=== PATIENT | female | born 1970 | race African-American/Black ===

== ENCOUNTER 2022-01-11 14:12 | Emergency (ER) | payer MEDICARE, MEDICAID ==
[~2022-01-11] VITALS: Ht 170.2 cm; Wt 73.0 kg
[2022-01-11 14:59] LABS: HEMATOCRIT. 39.2 % (36.0-48.0); HEMOGLOBIN. 12.8 g/dL (12.0-16.0); MEAN CORPUSCULAR HEMOGLOBIN 29.4 pg (28.0-32.0); MEAN CORPUSCULAR VOLUME 89.8 fL (81.0-99.0); MEAN PLATELET VOLUME 8.9 fl (7.4-10.4); PLATELET 189 x1000/uL (130-400); RED BLOOD CELL COUNT 4.36 mill/uL (4.2-5.4); RED CELL DISTRIBUTION WIDTH 14.8 % (11.6-14.6)
[2022-01-11] MEDS ORDERED: LEVETIRACETAM 1000MG PREMIX 100 ML IV NR (15:15)
[2022-01-11] MEDS ORDERED: ACETAMINOPHEN 500MG TABLET PO NR (15:15)
[2022-01-11 15:24] LABS: CHLORIDE 105 mEq/L (98-107)
[2022-01-11 15:37] LABS: ETHANOL BLOOD < 10 mg/dL
[2022-01-11 15:43] LABS: PLATELET ESTIMATE NORMAL
[2022-01-11 15:58] LABS: PROTHROMBIN TIME 10.9 sec (9.6-11.0)
[2022-01-11 17:35] VITALS: BP 144/88
[2022-01-11 17:35] LABS: CLARITY URINE CLEAR (CLEAR); COLOR URINE YELLOW (YELLOW); KETONES URINE 2+ (NEGATIVE); LEUKOCYTE ESTERASE URINE 2+ (NEGATIVE); NITRITE URINE NEGATIVE (NEGATIVE); OCCULT BLOOD URINE 1+ (NEGATIVE); PH URINE >9.0 (4.5-8.0); PROTEIN URINE 1+ (NEGATIVE); UROBILINOGEN URINE 0.2 E.U./dL (0.2-1.0)
== END 2022-01-11 17:37 | disposition home or self-care (01) ==
LOC: ER 14:12
DX: G40.909 Epilepsy, unspecified, not intractable, without status epilepticus (principal); R03.0 Elevated blood-pressure reading, without diagnosis of hypertension
CPT/HCPCS: 36415; 80053; 80320; 81003; 85025; 85610; 96365; 96366; 99284; J1953; G0480